=== PATIENT | male | born 1945 | race African-American/Black ===

== ENCOUNTER 2019-09-18 09:55 | Emergency (ER) | payer MEDICARE, BC ==
[~2019-09-18] VITALS: Ht 170.2 cm; Wt 81.8 kg
[2019-09-18 10:40] VITALS: BP 219/100
[2019-09-18] MEDS ORDERED: MORPHINE SULFATE 10 MG/ML VIAL. IM ONE (11:00)
[2019-09-18] MEDS ORDERED: ORPHENADRINE CITRATE 60 MG/2 ML VIAL. IM ONE (11:00)
--- NOTE | 2019-09-18 11:50 | RAD ---
EXAM: CT Lumbar Spine without IV contrast INDICATION: Back pain.: TECHNIQUE: Multi-detector row CT images were obtained through the lumbar spine without the use of IV contrast. Post-processing sagittal and coronal reconstructed images were obtained for interpretation. All CT scans performed at this facility utilize dose optimization techniques as appropriate to the exam, including the following: Automated exposure control and adjustment of the mA and/or KV according to patient size (this includes techniques or standardized protocols for targeted exams where dose is indication/reason for exam). COMPARISON: None FINDINGS: The lowest fully formed disc is referred to as the L5-S1 level. ALIGNMENT: Alignment is within normal limits. OSSEOUS: No evidence of fracture or bone destruction. DISC SPACES: Multilevel disc degenerative changes with mild loss of height and endplate osteophytic spurring most conspicuous anterolaterally to the left are noted. FACET JOINTS: There is mild facet hypertrophy most conspicuous on the right at L4-L5 and L5-S1. SPINAL CANAL: Unremarkable. NEUROFORAMINA: Moderate multilevel lumbar spinal foraminal stenosis is present most conspicuously at L3-L4 through L5-S1. SOFT TISSUES: Mild diffuse urinary bladder wall thickening in the setting of under distention. IMPRESSION: Multilevel lumbar degenerative spondylosis with varying degrees of predominantly foraminal stenosis. No acute or aggressive osseous lesions. Electronically signed by: Madhav Membreno MD (09/18/2019 11:48 AM) [id number]
[2019-09-18] MEDS ORDERED: HYDR-3164 PO (12:07)
[2019-09-18] MEDS ORDERED: CYCL10TA2 PO (12:07)
--- NOTE | 2019-09-18 12:07 | PHYS DOC ---
Past Medical History Past Medical History: Diabetes-Type II, High Cholesterol, Hypertension Past Surgical History: No Surgical History Smoking Status: Never Smoker Alcohol Use: Occasionally General Adult EDM: Chief Complaint: BACK PAIN OR INJURY HPI: HPI: Patient is a 74 year old male presenting to the ED with a chief complaint of low back pain. Patient states that he thinks he pulled a back muscle about 2 days ago. Patient states that it hurts him to move from sitting to standing but once he stands up he is able to walk with minimal pain. Patient denies bowel or bladder incontinence or saddle anesthesia. Patient states that he has a doctor's appointment on September 20 but needed some pain relief over the weekend. Review of Systems: Review of Systems: Constitutional: Denies fever or chills. [] Eyes: Denies change in visual acuity. [] HENT: Denies nasal congestion or sore throat. [] Respiratory: Denies cough or shortness of breath. [] Cardiovascular: Denies chest pain or edema. [] GI: Denies abdominal pain, nausea, vomiting, bloody stools or diarrhea. [] : Denies dysuria. [] Musculoskeletal: Complains of low back pain Heart Score: Risk Factors: Risk Factors: DM, Current or recent (<one month) smoker, HTN, HLP, family history of CAD, obesity. Risk Scores: Score 0 - 3: 2.5% MACE over next 6 weeks - Discharge Home Score 4 - 6: 20.3% MACE over next 6 weeks - Admit for Clinical Observation Score 7 - 10: 72.7% MACE over next 6 weeks - Early Invasive Strategies Current Medications: Current Medications Medications (Trade) Dose Ordered Sig/[facility] Start Time Stop Time Status Last Admin Dose Admin Morphine Sulfate (Morphine Sulfate) 10 mg 1X ONCE 09/18/19 11:00 09/18/19 11:01 DC 09/18/19 11:05 10 MG Orphenadrine Citrate (Norflex) 60 mg 1X ONCE 09/18/19 11:00 09/18/19 11:01 DC 09/18/19 11:05 60 MG Allergies: Allergies: Allergies Coded Allergies Type Severity Reaction Last Updated Verified No Known Drug Allergies 09/18/19 No Physical Exam: PE: Constitutional: Well developed, well nourished, no acute distress, non-toxic appearance. [] HENT: Normocephalic, atraumatic Eyes: EOMI Neck: Normal range of motion, Supple Respiratory: No respiratory distress Abdomen: Bowel sounds normal, soft, no tenderness Musculoskeletal: Midline lumbar tenderness Extremities: No tenderness, ROM intact Neurologic: Alert and oriented X 3 Current Patient Data: Vital Signs: Vital Signs Date Time Temp Pulse Resp B/P (MAP) Pulse Ox O2 Delivery O2 Flow Rate FiO2 09/18/19 11:05 12 99 Room Air 09/18/19 10:40 98.7 61 219/100 (139) 98.7 EKG: EKG: [] Radiology/Procedures: Radiology/Procedures: [] Impression: CT LUMBAR IMPRESSION: Multilevel lumbar degenerative spondylosis with varying degrees of predominantly foraminal stenosis. No acute or aggressive osseous lesions. Course & Med Decision Making: Course & Med Decision Making Pertinent Imaging studies reviewed. (See chart for details) Ordered CT head, pain medications CT head does not show any acute disease. Chronic stenosis seen. Patient will be discharged home on muscle relaxers and pain medication. Discussed results and plan of care with patient. Patient is instructed to follow up with PCP in one to 2 days. Appropriate discharge instructions given to patient to return to the ED or to seek immediate medical evaluation. Patient is instructed to return to the ED if symptoms worsen or if any concerns. Dragon Disclaimer: Dragon Disclaimer: This electronic medical record was generated, in whole or in part, using a voice recognition dictation system. Departure Departure Impression: Primary Impression: Lumbosacral pain Additional Impression: Arthritis Disposition: HOME, SELF-CARE Condition: IMPROVED Referrals: ANUEL MERCHANT MD (PCP) Patient Instructions: Arthritis, Degenerative-Brief, Back Pain, Adult, Degenerative Disk Disease Additional Instructions: Discussed results and plan of care with patient. Patient is instructed to follow up with PCP in one to 2 days. Appropriate discharge instructions given to patient to return to the ED or to seek immediate medical evaluation. Patient is instructed to return to the ED if symptoms worsen or if any concerns. Scripts Cyclobenzaprine Hcl (CYCLOBENZAPRINE HCL) 10 Mg Tablet 1 TAB PO TID for pain, #15 TAB Prov: SHANNAN LUNSFORD DO 09/18/19 Hydrocodone/Apap 5-325 (NORCO 5-325 TABLET) 1 Each Tablet 1 EACH PO PRN Q6HRS PRN for pain\, #15 as needed for pain Prov: GOLBECKIPALSHANNAN CHOW E DO 09/18/19 Justicifation of Admission Dx: Justifications for Admission: Justification of Admission Dx: No SHANNAN LUNSFORD DO Sep 18, 2019 12:07
== END 2019-09-18 12:09 | disposition home or self-care (01) ==
LOC: ER 09:55
DX: M47.817 Spondylosis without myelopathy or radiculopathy, lumbosacral region (principal); E11.9 Type 2 diabetes mellitus without complications; E78.00 Pure hypercholesterolemia, unspecified; I10 Essential (primary) hypertension
CPT/HCPCS: 72131; 96372; 99284; J2270; J2360